=== PATIENT | female | born 1935 | race Caucasian/White ===

== ENCOUNTER 2022-03-26 21:59 | Inpatient (IN) | payer MEDICARE, MEDICAID ==
[2022-03-27] MEDS ORDERED: Azithromycin 500 MG VIAL ONE (00:55)
[2022-03-27] MEDS ORDERED: cefTRIAXone\\ROCEPHIN 1 GM VIAL ONE (00:55)
[2022-03-27 01:20] LABS: SARS-CoV-2 NAA Rapid Test Not Detected (NotDetected)
[2022-03-27 02:04] LABS: #Eosinphils 0.3 10x3/uL (0.0-0.5); #Monocytes 0.9 10x3/uL (0.0-1.1); #Neutrophils 8.5 10x3/uL (1.5-8.4); %Basophils 0.3 % (0.0-2.0); %Eosinophils 2.4 % (0.0-6.0); %Lymphocytes 20.7 % (18.0-47.0); %Monocytes 7.5 % (0.0-10.0); %Neutrophils 68.6 % (40.0-75.0); Hemoglobin 11.1 g/dL (12.0-15.5); Mean Corpuscular HGB CONC 33.7 g/dL (32.0-36.0); Mean Corpuscular Volume 82.9 fl (81.6-98.3); Mean Platelet Volume 12.1 fl (7.4-10.4); Platelet Count 238 10x3/uL (150-450); RBC Distribution Width 16.2 % (11.5-14.5); Red Blood Cell (RBC) Count 3.97 10x6/uL (3.90-5.03); White Blood Cell (WBC) Count 12.4 10x3/uL (3.5-10.5)
[2022-03-27 02:14] LABS: ALT (SGPT) 60 U/L (8-55); AST (SGOT) 55 U/L (5-34); Albumin 3.7 g/dL (3.4-4.8); Alkaline Phosphatase 139 U/L (40-110); Anion Gap 17 mmol/L (10-20); BUN (Urea Nitrogen) 29 mg/dL (9.8-20.1); Bilirubin, Total 0.4 mg/dL (0.2-1.2); Calc. Creatinine Clearance 0 mL/min (70-130); Calcium 8.7 mg/dL (7.8-10.44); Carbon Dioxide 20 mmol/L (23-31); Chloride 103 mmol/L (98-107); Globulin 2.5 g/dL (2.4-3.5); Glucose 108 mg/dL (83-110); Potassium 3.7 mmol/L (3.5-5.1); Protein, Total 6.2 g/dL (5.8-8.1); Sodium 136 mmol/L (136-145)
[2022-03-27 02:21] LABS: Troponin I Less than 0.010 ng/mL (< 0.028)
[2022-03-27] MEDS ORDERED: Acetaminophen 325 MG TAB PO PRN (02:22)
[2022-03-27] MEDS ORDERED: Guaifenesin DM 100-10/5 ML UDCUP PO PRN (02:22)
[2022-03-27] MEDS ORDERED: Ondansetron PF 4 MG/2 ML Vial IVP PRN (02:22)
[2022-03-27] MEDS ORDERED: Senokot S 8.6-50 MG TAB PO PRN (02:22)
[2022-03-27] MEDS ORDERED: Calcium Carbonate 500 MG ChewTAB PO PRN (02:22)
[2022-03-27] MEDS ORDERED: traZODone HCl 50 MG TAB PO PRN (02:28)
[2022-03-27] MEDS ORDERED: Lactated Ringer's 500 ML IV SCH (02:30)
[2022-03-27] MEDS ORDERED: Famotidine/PF 20 mg/2ml Vial ONE (02:44)
[2022-03-27] MEDS ORDERED: diphenhydrAMINE 50 MG/ML VIAL ONE (02:44)
[2022-03-27] MEDS ORDERED: methylPREDNISolone Sod Succ/PF 125 MG/2 ML VIAL ONE (02:44)
[2022-03-27] MEDS ORDERED: Piperacillin/Tazobactam 3.375 GM VIAL ONE (03:04)
[2022-03-27 04:50] LABS: ALT (SGPT) 49 U/L (8-55); AST (SGOT) 43 U/L (5-34); Albumin 3.2 g/dL (3.4-4.8); Alkaline Phosphatase 130 U/L (40-110); Anion Gap 18 mmol/L (10-20); BUN (Urea Nitrogen) 23 mg/dL (9.8-20.1); Bilirubin, Total 0.5 mg/dL (0.2-1.2); Calc. Creatinine Clearance 0 mL/min (70-130); Carbon Dioxide 19 mmol/L (23-31); Chloride 103 mmol/L (98-107); Globulin 2.4 g/dL (2.4-3.5); Glucose 120 mg/dL (83-110); Potassium 3.5 mmol/L (3.5-5.1); Protein, Total 5.6 g/dL (5.8-8.1); Sodium 136 mmol/L (136-145)
[2022-03-27 04:54] LABS: #Eosinphils 0.2 10x3/uL (0.0-0.5); #Monocytes 0.6 10x3/uL (0.0-1.1); #Neutrophils 9.6 10x3/uL (1.5-8.4); %Basophils 0.3 % (0.0-2.0); %Eosinophils 1.9 % (0.0-6.0); %Lymphocytes 10.1 % (18.0-47.0); %Monocytes 4.8 % (0.0-10.0); %Neutrophils 82.4 % (40.0-75.0); Hemoglobin 10.6 g/dL (12.0-15.5); Mean Corpuscular HGB CONC 33.9 g/dL (32.0-36.0); Mean Corpuscular Volume 82.8 fl (81.6-98.3); Mean Platelet Volume 11.3 fl (7.4-10.4); Platelet Count 233 10x3/uL (150-450); RBC Distribution Width 16.2 % (11.5-14.5); Red Blood Cell (RBC) Count 3.78 10x6/uL (3.90-5.03); White Blood Cell (WBC) Count 11.6 10x3/uL (3.5-10.5)
[2022-03-27 05:06] VITALS: BMI 28.0
[2022-03-27] MEDS: Levothyroxine Sodium 50 MCG TAB PO SCH (05:26)
[2022-03-27] MEDS ORDERED: Mometasone/Formoterol 200/5 60 PUFF INH SCH (06:30)
[2022-03-27] MEDS ORDERED: Piperacillin/Tazobactam 3.375 GM in Sodium Chloride 0.9% 100 ML IVPB SCH (07:30)
[2022-03-27] MEDS ORDERED: Benzonatate 100 MG CAP PO PRN (08:16)
[2022-03-27] MEDS: Enoxaparin Sodium 40 MG/0.4 ML SYRINGE SC SCH (08:53)
[2022-03-27] MEDS: Aspirin 81 mg Enteric Coated Tablet PO SCH (08:54)
[2022-03-27] MEDS: LACTINEX 1 TAB PO SCH ×3 (08:54→21:05)
[2022-03-27] MEDS: NIFEdipine XL 30 MG TAB PO SCH (08:54)
[2022-03-27] MEDS: Gabapentin 100 MG CAP PO SCH (08:54)
[2022-03-27] MEDS: Multivitamin W/ Minerals 1 TAB PO SCH (08:54)
[2022-03-27] MEDS: OXcarbazepine 300 MG TAB PO SCH ×2 (08:55→21:05)
[2022-03-27] MEDS: Carvedilol 12.5 MG TAB PO SCH ×2 (08:55→16:01)
[2022-03-27 09:46] LABS: Legionella Urinary Ag Negative (Negative); Strep pneumo Urine Ag NEGATIVE (NEGATIVE)
[2022-03-27] MEDS: Mometasone/Formoterol 200/5 60 PUFF INH SCH ×2 (10:01→18:47)
[2022-03-27] MEDS ORDERED: Iopamidol 370 76% 100 ML VIAL ONE (11:07)
[2022-03-27 13:47] LABS: #Monocytes 0.2 10x3/uL (0.0-1.1); #Neutrophils 7.3 10x3/uL (1.5-8.4); %Basophils 0.1 % (0.0-2.0); %Lymphocytes 9.4 % (18.0-47.0); %Monocytes 2.3 % (0.0-10.0); %Neutrophils 87.6 % (40.0-75.0); Mean Corpuscular HGB CONC 32.7 g/dL (32.0-36.0); Mean Corpuscular Hemoglobin 27.8 pg (27.0-33.0); Mean Corpuscular Volume 85.1 fl (81.6-98.3); Mean Platelet Volume 11.5 fl (7.4-10.4); Platelet Count 270 10x3/uL (150-450); RBC Distribution Width 15.9 % (11.5-14.5); Red Blood Cell (RBC) Count 3.95 10x6/uL (3.90-5.03); White Blood Cell (WBC) Count 8.4 10x3/uL (3.5-10.5)
[2022-03-27 13:57] LABS: Anion Gap 17 mmol/L (10-20); BUN (Urea Nitrogen) 23 mg/dL (9.8-20.1); Calc. Creatinine Clearance 48 mL/min (70-130); Calcium 9.2 mg/dL (7.8-10.44); Carbon Dioxide 19 mmol/L (23-31); Chloride 102 mmol/L (98-107); Glucose 283 mg/dL (83-110); Sodium 134 mmol/L (136-145)
[2022-03-27] MEDS: Mirtazapine 15 MG TAB PO SCH (21:05)
[2022-03-27] MEDS: Atorvastatin Calcium 10 MG TAB PO SCH (21:05)
[2022-03-27] MEDS: Melatonin 3 MG TAB PO SCH (21:05)
[2022-03-28] MEDS: cefTRIAXone\\ROCEPHIN 1 GM in Sodium Chloride 0.9% 100 ML IVPB SCH (01:32)
[2022-03-28] MEDS: Azithromycin 500 MG in Sodium Chloride 0.9% 250 ML 250 ML IVPB SCH (01:58)
[2022-03-28] MEDS: Mometasone/Formoterol 200/5 60 PUFF INH SCH ×2 (07:25→23:11)
[2022-03-28] MEDS: Levothyroxine Sodium 50 MCG TAB PO SCH (07:58)
[2022-03-28 09:10] LABS: #Basophils 0.1 10x3/uL (0.0-0.2); #Eosinphils 0.1 10x3/uL (0.0-0.5); #Monocytes 0.6 10x3/uL (0.0-1.1); #Neutrophils 5.8 10x3/uL (1.5-8.4); %Basophils 0.7 % (0.0-2.0); %Eosinophils 0.9 % (0.0-6.0); %Lymphocytes 26.5 % (18.0-47.0); %Monocytes 6.6 % (0.0-10.0); %Neutrophils 64.7 % (40.0-75.0); Hemoglobin 10.4 g/dL (12.0-15.5); Mean Corpuscular HGB CONC 33.5 g/dL (32.0-36.0); Mean Corpuscular Hemoglobin 28.1 pg (27.0-33.0); Mean Corpuscular Volume 83.8 fl (81.6-98.3); Mean Platelet Volume 11.3 fl (7.4-10.4); Platelet Count 282 10x3/uL (150-450); RBC Distribution Width 15.5 % (11.5-14.5)
[2022-03-28 09:20] LABS: Anion Gap 15 mmol/L (10-20); BUN (Urea Nitrogen) 22 mg/dL (9.8-20.1); Calc. Creatinine Clearance 58 mL/min (70-130); Calcium 9.1 mg/dL (7.8-10.44); Carbon Dioxide 23 mmol/L (23-31); Chloride 107 mmol/L (98-107); Glucose 103 mg/dL (83-110); Potassium 3.4 mmol/L (3.5-5.1); Sodium 142 mmol/L (136-145)
[2022-03-28] MEDS: Carvedilol 12.5 MG TAB PO SCH ×2 (09:33→17:25)
[2022-03-28] MEDS: Gabapentin 100 MG CAP PO SCH (09:33)
[2022-03-28] MEDS: Enoxaparin Sodium 40 MG/0.4 ML SYRINGE SC SCH (09:33)
[2022-03-28] MEDS: Aspirin 81 mg Enteric Coated Tablet PO SCH (09:35)
[2022-03-28] MEDS: NIFEdipine XL 30 MG TAB PO SCH (09:35)
[2022-03-28] MEDS: LACTINEX 1 TAB PO SCH ×3 (09:35→20:29)
[2022-03-28] MEDS: Multivitamin W/ Minerals 1 TAB PO SCH (09:35)
[2022-03-28] MEDS: OXcarbazepine 300 MG TAB PO SCH ×2 (12:52→20:30)
[2022-03-28] MEDS ORDERED: Electrolyte Replacement Protocol 1 EACH FS SCH (15:45)
[2022-03-28] MEDS ORDERED: Potassium Bicarbonate/Cit Ac 20 MEQ TAB PO SCH (16:00)
[2022-03-28] MEDS ORDERED: Potassium Chloride 40 MEQ in Premix Bag 1 BAG IVPB SCH (16:45)
[2022-03-28] MEDS: Potassium Chloride 20 MEQ in Premix Bag 1 BAG IVPB SCH ×2 (18:41→22:35)
[2022-03-28] MEDS: Potassium Chloride 20 MEQ in Lactated Ringer's 1,000 ML IV SCH (19:07)
[2022-03-28] MEDS: Atorvastatin Calcium 10 MG TAB PO SCH (20:29)
[2022-03-28] MEDS: Melatonin 3 MG TAB PO SCH (20:29)
[2022-03-28] MEDS: Mirtazapine 15 MG TAB PO SCH (20:30)
[2022-03-28] MEDS: Labetalol HCl 100 MG/20 ML VIAL SLOW IVP PRN (22:52)
[2022-03-29] MEDS: cefTRIAXone\\ROCEPHIN 1 GM in Sodium Chloride 0.9% 100 ML IVPB SCH (03:02)
[2022-03-29] MEDS: Levothyroxine Sodium 50 MCG TAB PO SCH (03:07)
[2022-03-29] MEDS: Azithromycin 500 MG in Sodium Chloride 0.9% 250 ML 250 ML IVPB SCH (03:40)
[2022-03-29] MEDS: Labetalol HCl 100 MG/20 ML VIAL SLOW IVP PRN (03:51)
[2022-03-29 04:01] LABS: #Basophils 0.1 10x3/uL (0.0-0.2); #Eosinphils 0.2 10x3/uL (0.0-0.5); #Monocytes 0.6 10x3/uL (0.0-1.1); #Neutrophils 5.6 10x3/uL (1.5-8.4); %Basophils 0.7 % (0.0-2.0); %Eosinophils 2.6 % (0.0-6.0); %Lymphocytes 25.4 % (18.0-47.0); %Monocytes 7.2 % (0.0-10.0); %Neutrophils 63.5 % (40.0-75.0); Mean Corpuscular HGB CONC 32.7 g/dL (32.0-36.0); Mean Corpuscular Hemoglobin 27.4 pg (27.0-33.0); Mean Corpuscular Volume 83.8 fl (81.6-98.3); Mean Platelet Volume 11.2 fl (7.4-10.4); Platelet Count 312 10x3/uL (150-450); RBC Distribution Width 15.4 % (11.5-14.5); Red Blood Cell (RBC) Count 4.01 10x6/uL (3.90-5.03); White Blood Cell (WBC) Count 8.8 10x3/uL (3.5-10.5)
[2022-03-29 04:32] LABS: Anion Gap 14 mmol/L (10-20); BUN (Urea Nitrogen) 19 mg/dL (9.8-20.1); Calc. Creatinine Clearance 61 mL/min (70-130); Carbon Dioxide 23 mmol/L (23-31); Chloride 106 mmol/L (98-107); Glucose 86 mg/dL (83-110); Magnesium 1.8 mg/dL (1.6-2.6); Phosphorus 2.3 mg/dL (2.3-4.7); Potassium 3.9 mmol/L (3.5-5.1); Sodium 139 mmol/L (136-145)
[2022-03-29] MEDS ORDERED: Magnesium 2 GM/50 ML(in water) 2 GM in Premix Bag 1 BAG IVPB SCH (05:00)
[2022-03-29] MEDS: Potassium Chloride 20 MEQ in Lactated Ringer's 1,000 ML IV SCH ×2 (06:13→21:56)
[2022-03-29] MEDS: Mometasone/Formoterol 200/5 60 PUFF INH SCH ×2 (06:30→20:20)
[2022-03-29] MEDS ORDERED: hydrALAZINE 20 MG/ML VIAL SLOW IVP PRN (07:27)
[2022-03-29] MEDS: Potassium Chloride 20 MEQ in Premix Bag 1 BAG IVPB SCH (08:24)
[2022-03-29 08:53] LABS: #Basophils 0.1 10x3/uL (0.0-0.2); #Eosinphils 0.2 10x3/uL (0.0-0.5); #Monocytes 0.6 10x3/uL (0.0-1.1); %Basophils 0.6 % (0.0-2.0); %Lymphocytes 18.2 % (18.0-47.0); %Monocytes 6.5 % (0.0-10.0); %Neutrophils 72.2 % (40.0-75.0); Hemoglobin 11.5 g/dL (12.0-15.5); Mean Corpuscular HGB CONC 32.1 g/dL (32.0-36.0); Mean Corpuscular Hemoglobin 27.5 pg (27.0-33.0); Mean Corpuscular Volume 85.6 fl (81.6-98.3); Mean Platelet Volume 11.1 fl (7.4-10.4); Platelet Count 346 10x3/uL (150-450); RBC Distribution Width 15.6 % (11.5-14.5); Red Blood Cell (RBC) Count 4.18 10x6/uL (3.90-5.03); White Blood Cell (WBC) Count 9.7 10x3/uL (3.5-10.5)
[2022-03-29 09:46] LABS: Anion Gap 18 mmol/L (10-20); BUN (Urea Nitrogen) 17 mg/dL (9.8-20.1); Calc. Creatinine Clearance 61 mL/min (70-130); Calcium 9.1 mg/dL (7.8-10.44); Carbon Dioxide 20 mmol/L (23-31); Chloride 104 mmol/L (98-107); Glucose 102 mg/dL (83-110); Potassium 4.1 mmol/L (3.5-5.1); Sodium 138 mmol/L (136-145)
[2022-03-29] MEDS: Enoxaparin Sodium 40 MG/0.4 ML SYRINGE SC SCH (11:24)
[2022-03-29] MEDS: Gabapentin 100 MG CAP PO SCH (11:24)
[2022-03-29] MEDS: Multivitamin W/ Minerals 1 TAB PO SCH (11:25)
[2022-03-29] MEDS: LACTINEX 1 TAB PO SCH ×3 (11:25→21:46)
[2022-03-29] MEDS: Aspirin 81 mg Enteric Coated Tablet PO SCH (11:25)
[2022-03-29] MEDS: Carvedilol 12.5 MG TAB PO SCH ×2 (11:25→17:54)
[2022-03-29] MEDS: NIFEdipine XL 30 MG TAB PO SCH (11:26)
[2022-03-29] MEDS: Atorvastatin Calcium 10 MG TAB PO SCH (21:46)
[2022-03-29] MEDS: Mirtazapine 15 MG TAB PO SCH (21:46)
[2022-03-29] MEDS: OXcarbazepine 300 MG TAB PO SCH (21:46)
[2022-03-29] MEDS: Melatonin 3 MG TAB PO SCH (21:46)
[2022-03-30] MEDS ORDERED: cefTRIAXone\\ROCEPHIN 1 GM in Sodium Chloride 0.9% 100 ML IVPB SCH (03:00)
[2022-03-30] MEDS ORDERED: Azithromycin 500 MG in Sodium Chloride 0.9% 250 ML 250 ML IVPB SCH (04:00)
[2022-03-30] MEDS: Levothyroxine Sodium 50 MCG TAB PO SCH (05:21)
[2022-03-30 05:23] LABS: #Basophils 0.1 10x3/uL (0.0-0.2); #Eosinphils 0.2 10x3/uL (0.0-0.5); #Monocytes 0.6 10x3/uL (0.0-1.1); %Eosinophils 3.4 % (0.0-6.0); %Monocytes 8.2 % (0.0-10.0); %Neutrophils 56.7 % (40.0-75.0); Hemoglobin 11.8 g/dL (12.0-15.5); Mean Corpuscular HGB CONC 32.5 g/dL (32.0-36.0); Mean Corpuscular Hemoglobin 27.5 pg (27.0-33.0); Mean Corpuscular Volume 84.6 fl (81.6-98.3); Mean Platelet Volume 11.1 fl (7.4-10.4); Platelet Count 339 10x3/uL (150-450); RBC Distribution Width 15.6 % (11.5-14.5); Red Blood Cell (RBC) Count 4.29 10x6/uL (3.90-5.03); White Blood Cell (WBC) Count 7.1 10x3/uL (3.5-10.5)
[2022-03-30 05:47] LABS: Anion Gap 18 mmol/L (10-20); BUN (Urea Nitrogen) 21 mg/dL (9.8-20.1); Calc. Creatinine Clearance 58 mL/min (70-130); Calcium 9.3 mg/dL (7.8-10.44); Carbon Dioxide 21 mmol/L (23-31); Chloride 105 mmol/L (98-107); Glucose 87 mg/dL (83-110); Magnesium 2.4 mg/dL (1.6-2.6); Potassium 3.9 mmol/L (3.5-5.1); Sodium 140 mmol/L (136-145)
[2022-03-30] MEDS: Mometasone/Formoterol 200/5 60 PUFF INH SCH (07:11)
[2022-03-30 09:13] LABS: Anion Gap 17 mmol/L (10-20); BUN (Urea Nitrogen) 22 mg/dL (9.8-20.1); Calc. Creatinine Clearance 57 mL/min (70-130); Carbon Dioxide 21 mmol/L (23-31); Chloride 105 mmol/L (98-107); Glucose 89 mg/dL (83-110); Potassium 4.3 mmol/L (3.5-5.1); Sodium 139 mmol/L (136-145)
[2022-03-30 09:18] LABS: #Basophils 0.1 10x3/uL (0.0-0.2); #Eosinphils 0.2 10x3/uL (0.0-0.5); #Monocytes 0.6 10x3/uL (0.0-1.1); #Neutrophils 4.6 10x3/uL (1.5-8.4); %Basophils 0.8 % (0.0-2.0); %Eosinophils 2.2 % (0.0-6.0); %Lymphocytes 25.3 % (18.0-47.0); %Monocytes 7.9 % (0.0-10.0); Hemoglobin 11.6 g/dL (12.0-15.5); Mean Corpuscular Hemoglobin 27.5 pg (27.0-33.0); Mean Platelet Volume 10.9 fl (7.4-10.4); Platelet Count 335 10x3/uL (150-450); RBC Distribution Width 15.6 % (11.5-14.5); Red Blood Cell (RBC) Count 4.22 10x6/uL (3.90-5.03); White Blood Cell (WBC) Count 7.3 10x3/uL (3.5-10.5)
[2022-03-30] MEDS: Enoxaparin Sodium 40 MG/0.4 ML SYRINGE SC SCH (11:33)
[2022-03-30] MEDS: LACTINEX 1 TAB PO SCH ×2 (11:34→14:58)
[2022-03-30] MEDS: Gabapentin 100 MG CAP PO SCH (11:35)
[2022-03-30] MEDS: NIFEdipine XL 30 MG TAB PO SCH (11:35)
[2022-03-30] MEDS: Multivitamin W/ Minerals 1 TAB PO SCH (11:36)
[2022-03-30] MEDS: OXcarbazepine 300 MG TAB PO SCH (11:37)
[2022-03-30] MEDS: Potassium Chloride 20 MEQ in Lactated Ringer's 1,000 ML IV SCH (11:37)
[2022-03-30] MEDS: Carvedilol 12.5 MG TAB PO SCH ×2 (11:37→17:12)
[2022-03-30] MEDS: Aspirin 81 mg Enteric Coated Tablet PO SCH (11:37)
[2022-03-30 16:45] VITALS: BP 115/57; TEMP 97
== END 2022-03-30 17:54 | DRG 193 ==
LOC: CSHERS 21:59 → CSHTELE 03-27 04:48
PROVIDERS: ADMIT Student in an Organized Health Care Education/Training Program; ATTEND Family Medicine
DX: J18.9 Pneumonia, unspecified organism (principal); J96.01 Acute respiratory failure with hypoxia; I69.354 Hemiplegia and hemiparesis following cerebral infarction affecting left non-dominant side; J44.0 Chronic obstructive pulmonary disease with (acute) lower respiratory infection; G93.40 Encephalopathy, unspecified; I10 Essential (primary) hypertension; E78.5 Hyperlipidemia, unspecified; E03.9 Hypothyroidism, unspecified; F32.A Depression, unspecified; F43.10 Post-traumatic stress disorder, unspecified; F25.9 Schizoaffective disorder, unspecified; Z66 Do not resuscitate; G40.909 Epilepsy, unspecified, not intractable, without status epilepticus; F41.9 Anxiety disorder, unspecified; G30.9 Alzheimer's disease, unspecified; Z20.822 Contact with and (suspected) exposure to COVID-19; E78.00 Pure hypercholesterolemia, unspecified; F02.80 Dementia in other diseases classified elsewhere, unspecified severity, without behavioral disturbance, psychotic disturbance, mood disturbance, and anxiety; Z88.5 Allergy status to narcotic agent; Z88.8 Allergy status to other drugs, medicaments and biological substances; Z88.2 Allergy status to sulfonamides; Z87.891 Personal history of nicotine dependence; Z79.82 Long term (current) use of aspirin; Z79.899 Other long term (current) drug therapy
CPT/HCPCS: 36415; 71045; 71275; 74230; 80048; 80053; 83605; 83735; 84100; 84145; 84484; 85025; 85379; 87040; 87449; 87899; 93005; 94640; 94664; 94760; 96365; 96367; 96375; J0360; J0456; J0696; J1200; J1650; J2543; J2930; J3475; J3480; J3490; J7050; J7120; J7620; Q9967; S0028; U0002

== ENCOUNTER 2022-06-06 06:51 | Inpatient (IN) | payer MEDICARE, MEDICAID ==
[2022-06-06 07:11] LABS: Actual Bicarbonate (HCO3v) 22 mEq/L (22-28); Base Excess -0.9 mEq/L (-2.0 to +3.0); Calcium, Ionized (venous) 1.15 mmol/L (1.16-1.32); Chloride (VBG) 105 mmol/L (98-106); Hemoglobin (Hb) 12.2 g/dL (11.7-16.1); Potassium (VBG) 4.08 mmol/L (3.70-5.30); Puncture Site Other Site; RapidComm Collect By CBN; Sodium 138.5 mmol/L (133-146); pH (venous) 7.48 (7.32-7.43)
[2022-06-06] MEDS ORDERED: Albuterol Sulfate 2.5 mg/3 ml Neb ONE (07:21)
[2022-06-06 07:23] LABS: #Basophils 0.1 10x3/uL (0.0-0.2); #Eosinphils 0.4 10x3/uL (0.0-0.5); #Monocytes 0.5 10x3/uL (0.0-1.1); %Basophils 0.7 % (0.0-2.0); %Monocytes 4.4 % (0.0-10.0); %Neutrophils 55.3 % (40.0-75.0); Hemoglobin 11.5 g/dL (12.0-15.5); Mean Corpuscular Hemoglobin 27.3 pg (27.0-33.0); Mean Corpuscular Volume 82.9 fl (81.6-98.3); Mean Platelet Volume 10.9 fl (7.4-10.4); Platelet Count 364 10x3/uL (150-450); RBC Distribution Width 15.7 % (11.5-14.5); Red Blood Cell (RBC) Count 4.21 10x6/uL (3.90-5.03); White Blood Cell (WBC) Count 10.9 10x3/uL (3.5-10.5)
[2022-06-06] MEDS ORDERED: cefTRIAXone\\ROCEPHIN 1 GM VIAL ONE (07:28)
[2022-06-06 07:42] LABS: ALT (SGPT) 17 U/L (8-55); AST (SGOT) 19 U/L (5-34); Albumin 3.9 g/dL (3.4-4.8); Alkaline Phosphatase 191 U/L (40-110); Anion Gap 18 mmol/L (10-20); BUN (Urea Nitrogen) 19 mg/dL (9.8-20.1); Bilirubin, Total 0.4 mg/dL (0.2-1.2); Calc. Creatinine Clearance 0 mL/min (70-130); Calcium 9.1 mg/dL (7.8-10.44); Carbon Dioxide 18 mmol/L (23-31); Chloride 109 mmol/L (98-107); Estimated GFR 66; Glucose 101 mg/dL (83-110); Potassium 4.5 mmol/L (3.5-5.1); Protein, Total 6.9 g/dL (5.8-8.1); Sodium 140 mmol/L (136-145)
[2022-06-06] MEDS ORDERED: Azithromycin 500 MG VIAL ONE (07:58)
[2022-06-06 08:00] LABS: SARS-CoV-2 NAA Rapid Test Not Detected (NotDetected)
[2022-06-06 10:59] LABS: Bilirubin Neg (Negative); Blood, Urine 10 (Negative); Clarity Clear (Clear); Glucose, Urine (Dipstick) Normal (Negative); Ketone, Urine Negative (Negative); Leukocyte Negative (Negative); Nitrite Positive (Negative); Protein, Urine (Dipstick) Negative (Neg-Trace); Urobilinogen Normal mg/dL (Less than 2)
[2022-06-06] MEDS ORDERED: Ondansetron ODT 4 MG TAB PO PRN (11:06)
[2022-06-06] MEDS ORDERED: Acetaminophen 325 MG TAB PO PRN (11:06)
[2022-06-06 11:08] LABS: Bacteria/HPF 2+ HPF (None Seen); Mucous/LPF 1+ LPF (<2+); RBC/HPF 0-3 HPF (0-3); WBC/HPF 0-3 HPF (0-3)
[2022-06-06] MEDS ORDERED: hydrALAZINE 20 MG/ML VIAL SLOW IVP PRN (11:20)
[2022-06-06] MEDS ORDERED: Loratadine 10 MG TAB PO PRN (11:23)
[2022-06-06] MEDS ORDERED: Electrolyte Replacement Protocol 1 EACH FS SCH (11:30)
[2022-06-06 13:18] VITALS: BMI 26.4
[2022-06-06] MEDS: methylPREDNISolone Sod Succ 40 MG VIAL IVP SCH (15:08)
[2022-06-06] MEDS: Mirtazapine 15 MG TAB PO SCH (21:39)
[2022-06-06] MEDS: NIFEdipine XL 30 MG TAB PO SCH (21:39)
[2022-06-06] MEDS: Gabapentin 100 MG CAP PO SCH (21:39)
[2022-06-06] MEDS: Atorvastatin Calcium 10 MG TAB PO SCH (21:39)
[2022-06-06] MEDS: OXcarbazepine 300 MG TAB PO SCH (21:39)
[2022-06-07 05:41] LABS: #Monocytes 0.9 10x3/uL (0.0-1.1); #Neutrophils 8.1 10x3/uL (1.5-8.4); %Basophils 0.3 % (0.0-2.0); %Eosinophils 0.1 % (0.0-6.0); %Lymphocytes 18.6 % (18.0-47.0); Hemoglobin 11.1 g/dL (12.0-15.5); Mean Corpuscular HGB CONC 32.6 g/dL (32.0-36.0); Mean Corpuscular Hemoglobin 27.1 pg (27.0-33.0); Mean Corpuscular Volume 83.4 fl (81.6-98.3); Mean Platelet Volume 10.9 fl (7.4-10.4); Platelet Count 366 10x3/uL (150-450); RBC Distribution Width 15.3 % (11.5-14.5); Red Blood Cell (RBC) Count 4.09 10x6/uL (3.90-5.03); White Blood Cell (WBC) Count 11.2 10x3/uL (3.5-10.5)
[2022-06-07] MEDS: Levothyroxine Sodium 50 MCG TAB PO SCH (05:42)
[2022-06-07 05:52] LABS: Phosphorus 3.3 mg/dL (2.3-4.7)
[2022-06-07 05:56] LABS: Anion Gap 15 mmol/L (10-20); BUN (Urea Nitrogen) 21 mg/dL (9.8-20.1); Calc. Creatinine Clearance 54 mL/min (70-130); Calcium 9.4 mg/dL (7.8-10.44); Carbon Dioxide 21 mmol/L (23-31); Chloride 107 mmol/L (98-107); Estimated GFR 65; Glucose 103 mg/dL (83-110); Magnesium 2.3 mg/dL (1.6-2.6); Potassium 3.9 mmol/L (3.5-5.1); Sodium 139 mmol/L (136-145)
[2022-06-07] MEDS: methylPREDNISolone Sod Succ 40 MG VIAL IVP SCH ×4 (06:41→21:13)
[2022-06-07] MEDS: Aspirin Chewable 81 MG TAB PO SCH (08:29)
[2022-06-07] MEDS: NIFEdipine XL 30 MG TAB PO SCH ×2 (08:30→21:12)
[2022-06-07] MEDS: OXcarbazepine 300 MG TAB PO SCH ×2 (08:30→21:12)
[2022-06-07] MEDS: Gabapentin 100 MG CAP PO SCH ×2 (08:31→21:14)
[2022-06-07] MEDS: cefTRIAXone\\ROCEPHIN 1 GM in Sodium Chloride 0.9% 100 ML IVPB SCH (08:31)
[2022-06-07] MEDS: Enoxaparin Sodium 40 MG/0.4 ML SYRINGE SC SCH (08:31)
[2022-06-07] MEDS: Carvedilol 12.5 MG TAB PO SCH (08:31)
[2022-06-07] MEDS: Azithromycin 500 MG in Sodium Chloride 0.9% 250 ML 250 ML IVPB SCH (08:31)
[2022-06-07] MEDS: Benzonatate 100 MG CAP PO PRN (08:41)
[2022-06-07] MEDS ORDERED: Mometasone/Formoterol 200/5 60 PUFF INH SCH (10:00)
[2022-06-07] MEDS: Mometasone/Formoterol 200/5 60 PUFF INH SCH (20:35)
[2022-06-07] MEDS: Mirtazapine 15 MG TAB PO SCH (21:11)
[2022-06-07] MEDS: Atorvastatin Calcium 10 MG TAB PO SCH (21:11)
[2022-06-08 04:47] LABS: #Monocytes 0.4 10x3/uL (0.0-1.1); #Neutrophils 7.9 10x3/uL (1.5-8.4); %Basophils 0.2 % (0.0-2.0); %Lymphocytes 17.9 % (18.0-47.0); %Monocytes 3.9 % (0.0-10.0); %Neutrophils 77.3 % (40.0-75.0); Hemoglobin 11.8 g/dL (12.0-15.5); Mean Corpuscular HGB CONC 32.2 g/dL (32.0-36.0); Mean Corpuscular Hemoglobin 26.9 pg (27.0-33.0); Mean Corpuscular Volume 83.6 fl (81.6-98.3); Mean Platelet Volume 10.5 fl (7.4-10.4); Platelet Count 378 10x3/uL (150-450); RBC Distribution Width 15.8 % (11.5-14.5); Red Blood Cell (RBC) Count 4.38 10x6/uL (3.90-5.03); White Blood Cell (WBC) Count 10.3 10x3/uL (3.5-10.5)
[2022-06-08 05:06] LABS: Anion Gap 17 mmol/L (10-20); BUN (Urea Nitrogen) 33 mg/dL (9.8-20.1); Calc. Creatinine Clearance 45 mL/min (70-130); Calcium 9.4 mg/dL (7.8-10.44); Carbon Dioxide 19 mmol/L (23-31); Chloride 107 mmol/L (98-107); Estimated GFR 52; Glucose 130 mg/dL (83-110); Potassium 4.6 mmol/L (3.5-5.1); Sodium 138 mmol/L (136-145)
[2022-06-08] MEDS: methylPREDNISolone Sod Succ 40 MG VIAL IVP SCH (06:01)
[2022-06-08] MEDS: Levothyroxine Sodium 50 MCG TAB PO SCH (06:01)
[2022-06-08] MEDS: Mometasone/Formoterol 200/5 60 PUFF INH SCH (07:04)
[2022-06-08 07:29] VITALS: BP 171/79; TEMP 97
[2022-06-08] MEDS: Enoxaparin Sodium 40 MG/0.4 ML SYRINGE SC SCH (08:44)
[2022-06-08] MEDS: Gabapentin 100 MG CAP PO SCH (08:44)
[2022-06-08] MEDS: Aspirin Chewable 81 MG TAB PO SCH (08:44)
[2022-06-08] MEDS: OXcarbazepine 300 MG TAB PO SCH (08:44)
[2022-06-08] MEDS: Carvedilol 12.5 MG TAB PO SCH (08:44)
[2022-06-08] MEDS: cefTRIAXone\\ROCEPHIN 1 GM in Sodium Chloride 0.9% 100 ML IVPB SCH (08:45)
[2022-06-08] MEDS: Benzonatate 100 MG CAP PO PRN (08:45)
[2022-06-08] MEDS: NIFEdipine XL 30 MG TAB PO SCH (08:45)
[2022-06-08] MEDS: Azithromycin 500 MG in Sodium Chloride 0.9% 250 ML 250 ML IVPB SCH (08:45)
[2022-06-08] MEDS ORDERED: Amlodipine 10 MG TAB PO SCH (09:30)
[2022-06-08] MEDS ORDERED: NIFEdipine XL 60 MG TAB PO SCH (10:00)
[2022-06-08] MEDS ORDERED: methylPREDNISolone Sod Succ 40 MG VIAL IVP SCH (21:00)
[2022-06-09] MEDS ORDERED: predniSONE 20 MG TAB PO SCH (08:00)
[2022-06-09] MEDS ORDERED: NIFEdipine XL 90 MG TAB PO SCH (09:00)
[2022-06-09] MEDS ORDERED: Amlodipine 5 MG TAB PO SCH (09:00)
[2022-06-09] MEDS ORDERED: Azithromycin 250 MG TAB PO SCH (09:00)
== END 2022-06-08 13:51 | DRG 871 ==
LOC: CSHERS 06:51 → INTOOBSV 11:22 → CSHERHOLD 11:22 → CSHTELE 11:55 → OBSVTOIN 06-07 15:58
PROVIDERS: ADMIT Emergency Medicine; ATTEND Internal Medicine
DX: A41.9 Sepsis, unspecified organism (principal); J96.01 Acute respiratory failure with hypoxia; J44.1 Chronic obstructive pulmonary disease with (acute) exacerbation; I69.354 Hemiplegia and hemiparesis following cerebral infarction affecting left non-dominant side; N39.0 Urinary tract infection, site not specified; Z20.822 Contact with and (suspected) exposure to COVID-19; Z66 Do not resuscitate; F41.9 Anxiety disorder, unspecified; F32.A Depression, unspecified; F43.10 Post-traumatic stress disorder, unspecified; D50.9 Iron deficiency anemia, unspecified; E78.00 Pure hypercholesterolemia, unspecified; I12.9 Hypertensive chronic kidney disease with stage 1 through stage 4 chronic kidney disease, or unspecified chronic kidney disease; N18.30 Chronic kidney disease, stage 3 unspecified; F25.9 Schizoaffective disorder, unspecified; F03.90 Unspecified dementia, unspecified severity, without behavioral disturbance, psychotic disturbance, mood disturbance, and anxiety; E03.9 Hypothyroidism, unspecified; Z87.01 Personal history of pneumonia (recurrent); Z88.8 Allergy status to other drugs, medicaments and biological substances; Z88.6 Allergy status to analgesic agent; Z91.041 Radiographic dye allergy status; Z88.2 Allergy status to sulfonamides; Z88.1 Allergy status to other antibiotic agents; Z79.890 Hormone replacement therapy; Z79.82 Long term (current) use of aspirin; Z79.899 Other long term (current) drug therapy; Z87.891 Personal history of nicotine dependence
CPT/HCPCS: 36415; 71045; 80048; 80053; 81003; 81015; 82805; 83605; 83735; 83880; 84100; 84484; 85025; 87040; 87086; 93005; 94640; 94644; 94760; 96365; 96367; 96372; 96375; 96376; G0378; J0456; J0696; J1650; J2920; J3490; J7050; J7611; J7620; U0002

== ENCOUNTER 2023-02-20 22:28 | Inpatient (IN) | payer MEDICARE, MEDICAID ==
[2023-02-20 23:55] LABS: #Basophils 0.1 10x3/uL (0.0-0.2); #Eosinphils 0.4 10x3/uL (0.0-0.5); #Monocytes 0.7 10x3/uL (0.0-1.1); #Neutrophils 4.6 10x3/uL (1.5-8.4); %Basophils 0.7 % (0.0-2.0); %Eosinophils 4.7 % (0.0-6.0); %Lymphocytes 31.9 % (18.0-47.0); %Monocytes 7.8 % (0.0-10.0); %Neutrophils 54.4 % (40.0-75.0); Hemoglobin 11.5 g/dL (12.0-15.5); Mean Corpuscular HGB CONC 32.5 g/dL (32.0-36.0); Mean Corpuscular Hemoglobin 28.8 pg (27.0-33.0); Mean Corpuscular Volume 88.5 fl (81.6-98.3); Mean Platelet Volume 11.6 fl (7.4-10.4); Platelet Count 214 10x3/uL (150-450); RBC Distribution Width 15.9 % (11.5-14.5); White Blood Cell (WBC) Count 8.4 10x3/uL (3.5-10.5)
[2023-02-21 00:12] LABS: ALT (SGPT) 12 U/L (8-55); AST (SGOT) 18 U/L (5-34); Alkaline Phosphatase 148 U/L (40-110); Anion Gap 16 mmol/L (10-20); BUN (Urea Nitrogen) 29 mg/dL (9.8-20.1); Bilirubin, Total 0.2 mg/dL (0.2-1.2); Calc. Creatinine Clearance 0 mL/min (70-130); Calcium 8.9 mg/dL (7.8-10.44); Carbon Dioxide 19 mmol/L (23-31); Chloride 111 mmol/L (98-107); Estimated GFR 48; Glucose 131 mg/dL (83-110); Potassium 3.6 mmol/L (3.5-5.1); Sodium 142 mmol/L (136-145)
[2023-02-21 01:16] LABS: Bilirubin Neg (Negative); Blood, Urine Negative (Negative); Clarity Clear (Clear); Glucose, Urine (Dipstick) Normal (Negative); Ketone, Urine Negative (Negative); Leukocyte 25 (Negative); Nitrite Negative (Negative); Protein, Urine (Dipstick) 15 mg/dl (Neg-Trace)
[2023-02-21 01:35] LABS: RBC/HPF 0-3 HPF (0-3); WBC/HPF 0-3 HPF (0-3)
[2023-02-21 01:36] LABS: Bacteria/HPF None Seen HPF (None Seen); Squamous Epithelial None Seen HPF (0-3)
[2023-02-21] MEDS ORDERED: Vancomycin 1 GM VIAL ONE (01:48)
[2023-02-21] MEDS ORDERED: Guaifenesin DM 100-10/5 ML UDCUP PO PRN (02:07)
[2023-02-21] MEDS ORDERED: Acetaminophen 325 MG TAB PO PRN (02:07)
[2023-02-21] MEDS ORDERED: Ondansetron PF 4 MG/2 ML Vial IVP PRN (02:07)
[2023-02-21] MEDS ORDERED: Calcium Carbonate 500 MG ChewTAB PO PRN ×2 (02:07→02:11)
[2023-02-21] MEDS ORDERED: Senokot S 8.6-50 MG TAB PO PRN (02:07)
[2023-02-21] MEDS ORDERED: Lactated Ringer's 500 ML IV SCH (02:30)
[2023-02-21 02:54] LABS: Lactic Acid 1.1 mmol/L (0.5-2.2)
[2023-02-21] MEDS ORDERED: Sterile Water 10 ML ONE (03:20)
[2023-02-21] MEDS ORDERED: Ziprasidone 20 MG VIAL ONE (03:20)
[2023-02-21] MEDS ORDERED: Lorazepam 2 MG/ML VIAL ONE (05:59)
[2023-02-21] MEDS ORDERED: Aspirin Chewable 81 MG TAB ONE (07:34)
[2023-02-21] MEDS ORDERED: QUEtiapine 25 MG TAB ONE (07:35)
[2023-02-21] MEDS ORDERED: Carvedilol 12.5 MG TAB ONE (07:38)
[2023-02-21] MEDS: Levothyroxine Sodium 50 MCG TAB PO SCH (08:44)
[2023-02-21] MEDS: Aspirin Chewable 81 MG TAB PO SCH (08:45)
[2023-02-21] MEDS: NIFEdipine XL 90 MG TAB PO SCH (08:45)
[2023-02-21] MEDS: QUEtiapine 25 MG TAB PO SCH ×2 (08:45→12:30)
[2023-02-21] MEDS: OXcarbazepine 300 MG TAB PO SCH ×2 (08:45→23:50)
[2023-02-21] MEDS: Carvedilol 12.5 MG TAB PO SCH (08:45)
[2023-02-21] MEDS: LACTINEX 1 TAB PO SCH ×3 (08:45→23:31)
[2023-02-21] MEDS: Gabapentin 100 MG CAP PO SCH ×2 (08:45→23:31)
[2023-02-21] MEDS: Sertraline 100 MG TAB PO SCH (08:46)
[2023-02-21] MEDS: Vit A,C & E/Lutein/Minerals Tablet PO SCH (08:46)
[2023-02-21 10:23] LABS: Anion Gap 14 mmol/L (10-20); BUN (Urea Nitrogen) 19 mg/dL (9.8-20.1); CK (CPK) 53 U/L (29-168); Calc. Creatinine Clearance 0 mL/min (70-130); Calcium 8.7 mg/dL (7.8-10.44); Carbon Dioxide 20 mmol/L (23-31); Chloride 109 mmol/L (98-107); Estimated GFR 72; Glucose 113 mg/dL (83-110); Magnesium 1.8 mg/dL (1.6-2.6); Potassium 3.5 mmol/L (3.5-5.1); Sodium 139 mmol/L (136-145)
[2023-02-21] MEDS ORDERED: Electrolyte Replacement Protocol 1 EACH FS SCH (10:45)
[2023-02-21] MEDS ORDERED: Potassium Chloride 20 MEQ TAB PO SCH (11:00)
[2023-02-21] MEDS ORDERED: Magnesium 2 GM/50 ML(in water) 2 GM in Premix Bag 1 BAG IVPB SCH (11:00)
[2023-02-21] MEDS: Mometasone/Formoterol 200/5 60 PUFF INH SCH ×2 (11:24→20:29)
[2023-02-21] MEDS ORDERED: NIFEdipine XL 90 MG TAB PO SCH (13:00)
[2023-02-21] MEDS ORDERED: Vancomycin 1 GM in Premix Bag 1 BAG IVPB SCH (15:15)
[2023-02-21] MEDS ORDERED: Mometasone/Formoterol 200/5 60 PUFF INH SCH (20:00)
[2023-02-21] MEDS ORDERED: Mirtazapine 15 MG TAB PO SCH (21:00)
[2023-02-21] MEDS ORDERED: Atorvastatin Calcium 10 MG TAB PO SCH (21:00)
[2023-02-21] MEDS ORDERED: Melatonin 3 MG TAB PO SCH (21:00)
[2023-02-21] MEDS ORDERED: QUEtiapine 25 MG TAB PO SCH (21:00)
[2023-02-21] MEDS ORDERED: traZODone HCl 50 MG TAB PO SCH (21:00)
[2023-02-22 04:22] LABS: #Basophils 0.1 10x3/uL (0.0-0.2); #Eosinphils 0.4 10x3/uL (0.0-0.5); #Monocytes 0.7 10x3/uL (0.0-1.1); #Neutrophils 4.2 10x3/uL (1.5-8.4); %Basophils 0.7 % (0.0-2.0); %Eosinophils 5.1 % (0.0-6.0); %Lymphocytes 34.3 % (18.0-47.0); %Monocytes 8.6 % (0.0-10.0); %Neutrophils 51.1 % (40.0-75.0); Hemoglobin 11.6 g/dL (12.0-15.5); Mean Corpuscular HGB CONC 31.8 g/dL (32.0-36.0); Mean Corpuscular Hemoglobin 28.1 pg (27.0-33.0); Mean Corpuscular Volume 88.4 fl (81.6-98.3); Mean Platelet Volume 12.2 fl (7.4-10.4); Platelet Count 243 10x3/uL (150-450); RBC Distribution Width 15.9 % (11.5-14.5); Red Blood Cell (RBC) Count 4.13 10x6/uL (3.90-5.03); White Blood Cell (WBC) Count 8.2 10x3/uL (3.5-10.5)
[2023-02-22 04:48] LABS: Anion Gap 13 mmol/L (10-20); BUN (Urea Nitrogen) 25 mg/dL (9.8-20.1); Calc. Creatinine Clearance 0 mL/min (70-130); Carbon Dioxide 21 mmol/L (23-31); Chloride 111 mmol/L (98-107); Estimated GFR 51; Glucose 96 mg/dL (83-110); Magnesium 2.5 mg/dL (1.6-2.6); Potassium 4.1 mmol/L (3.5-5.1); Sodium 141 mmol/L (136-145)
[2023-02-22] MEDS: Levothyroxine Sodium 50 MCG TAB PO SCH (05:10)
[2023-02-22] MEDS: Mometasone/Formoterol 200/5 60 PUFF INH SCH (07:40)
[2023-02-22] MEDS: Carvedilol 12.5 MG TAB PO SCH (08:32)
[2023-02-22] MEDS: Aspirin Chewable 81 MG TAB PO SCH (08:32)
[2023-02-22] MEDS: LACTINEX 1 TAB PO SCH ×2 (08:32→13:13)
[2023-02-22] MEDS: QUEtiapine 25 MG TAB PO SCH ×2 (08:33→13:13)
[2023-02-22] MEDS: Gabapentin 100 MG CAP PO SCH (08:33)
[2023-02-22] MEDS: Sertraline 100 MG TAB PO SCH (08:33)
[2023-02-22] MEDS: NIFEdipine XL 90 MG TAB PO SCH (08:33)
[2023-02-22] MEDS: OXcarbazepine 300 MG TAB PO SCH (09:12)
[2023-02-22] MEDS: Vit A,C & E/Lutein/Minerals Tablet PO SCH (09:13)
[2023-02-22 12:05] VITALS: BP 130/58; TEMP 98.5
== END 2023-02-22 15:54 | DRG 884 ==
LOC: CSHERS 22:28 → INTOOBSV 02-21 02:46 → CSHERHOLD 02-21 02:46 → CSHTELE 02-21 11:15 → OBSVTOIN 02-21 13:34
PROVIDERS: ADMIT Student in an Organized Health Care Education/Training Program; ATTEND Internal Medicine
DX: F03.90 Unspecified dementia, unspecified severity, without behavioral disturbance, psychotic disturbance, mood disturbance, and anxiety (principal); N17.9 Acute kidney failure, unspecified; Z16.24 Resistance to multiple antibiotics; I69.354 Hemiplegia and hemiparesis following cerebral infarction affecting left non-dominant side; I10 Essential (primary) hypertension; E78.5 Hyperlipidemia, unspecified; J44.9 Chronic obstructive pulmonary disease, unspecified; E03.9 Hypothyroidism, unspecified; F32.A Depression, unspecified; F43.10 Post-traumatic stress disorder, unspecified; F25.9 Schizoaffective disorder, unspecified; Z66 Do not resuscitate; E86.0 Dehydration; G40.909 Epilepsy, unspecified, not intractable, without status epilepticus; F41.9 Anxiety disorder, unspecified; Z88.5 Allergy status to narcotic agent; Z88.2 Allergy status to sulfonamides; Z88.8 Allergy status to other drugs, medicaments and biological substances; Z79.82 Long term (current) use of aspirin; Z79.899 Other long term (current) drug therapy; Z79.51 Long term (current) use of inhaled steroids
CPT/HCPCS: 36415; 51701; 70450; 71045; 72125; 74176; 80048; 80053; 81003; 81015; 82550; 83605; 83735; 84145; 84443; 84484; 85025; 87040; 93005; 94664; 94760; 96361; 96365; 96366; 96372; 96375; J1650; J2060; J3370; J3475; J3486; J7120